=== PATIENT | male | born 1930 | race African-American/Black ===

== ENCOUNTER 2018-10-31 10:50 | Day surgery (SDC) | payer OTHER, BC ==
[2018-10-28 09:03] VITALS: BMI 21.2
[2018-10-31 11:33] LABS: INR 2.19 (0.83-1.09)
[2018-10-31] MEDS ORDERED: LIDOCAINE HCL 1%, 10 MG/ML (20ML VIAL) ONE (12:15)
[2018-10-31] MEDS ORDERED: MIDAZOLAM HCL 2 MG/2 ML SINGLE DOSE VIAL ONE (12:29)
[2018-10-31] MEDS ORDERED: PROPOFOL 20 ML ONE (12:29)
--- NOTE | 2018-10-31 12:29 | HP ---
[facility]ellite [facility] - Chief Complaint History of Present Illness: 88 year old man with chronic kidney disease stage 5. AV access needed for future hemodialysis. He is right handed. History Source: Patient, Medical Record Limitations to Obtaining History: No Limitations - Past Medical History Allergies/Adverse Reactions: Allergies Allergy/AdvReac Type Severity Reaction Status Date / Time No Known Drug Allergies Allergy Verified 10/28/18 09:03 SURG TECH: Yes: Parkinson's Cardiovascular: Yes: AFIB, HTN Renal/: Yes: Renal Failure Rheumatology: Yes: Gout - Current Medications Current Medications: Home Medications Medication Instructions Recorded Allopurinol [Zyloprim -] 100 mg PO DAILY 10/28/18 Brimonidine Tartrate/Timolol 1 drop OP DAILY 10/28/18 [Combigan Eye Drops] Brinzolamide [Azopt] 1 drop OP DAILY 10/28/18 Calcitriol [Rocaltrol -] 0.5 mcg PO DAILY 10/28/18 Diltiazem Cd [Cardizem Cd -] 180 mg PO DAILY 10/28/18 Dorzolamide HCl/Pf [Dorzolamide 2% 1 drop OP DAILY 10/28/18 Eye Drop] Epoetin Colton [Procrit] 20,000 unit IJ MONTHLY 10/28/18 Finasteride 5 mg PO DAILY 10/28/18 Tamsulosin HCl 0.4 mg PO DAILY 10/28/18 Triamterene/Hydrochlorothiazid 1 each PO DAILY 10/28/18 [Triamterene-Hctz 37.5-25 mg Cp] Warfarin Sodium [Coumadin] 3 mg PO DAILY 10/28/18 Sodium Bicarbonate - 10 gr PO DAILY 10/31/18 Satellite Physical Exam - Physical Examination Vital Signs: Vital Signs Period Temp Pulse Resp BP Sys/Kline Pulse Ox Last 24 Hr 97.9 F-97.9 F 71-71 18-18 144-144/59-59 100 General Appearance: Well Developed, Alert & Oriented x3 ENT: Clear Lung: Clear to auscultation Heart: Other (Irregular) Abdomen: Soft Extremities: No edema Neurological: Intact, Tremors Satellite Impression/Plan - Impression/Plan Impression: CKD stage 5 Operative Procedure: Creation AV fistula left arm, brachial art to brachial vein , 1st stage Date to be Performed: 10/31/18
[2018-10-31] MEDS ORDERED: LIDOCAINE HCL 1%, 10 MG/ML (20ML VIAL) PNB ONE ×2 (13:17)
[2018-10-31] MEDS ORDERED: DEXAMETHASONE SOD PHOSPHATE 4 MG/1 ML VIAL ONE (13:20)
[2018-10-31] MEDS ORDERED: ONDANSETRON 4 MG/2 ML VIAL IVPUSH PRN (13:52)
[2018-10-31] MEDS ORDERED: oxyCODONE HCL 5 MG TABLET PO PRN (13:52)
--- NOTE | 2018-10-31 13:56 | OP ---
Operative Note - Note: Operative Date: 10/31/18 Pre-Operative Diagnosis: CKD stage 5 Operation: Creation AV fistula left arm, brachial artery to brachial vein, 1st stage Findings: Patent brachial vessels Post-Operative Diagnosis: Same as Pre-op Surgeon: Shyam Berger Residential Living Assistant: Cameron Giron Anesthesiologist/[employer] ENG[employer]ER: Jacek Mendez Anesthesia: Fractional
[2018-10-31] MEDS ORDERED: SODIUM CHLORIDE 1,000 ML IV SCH (14:00)
[2018-10-31 16:33] VITALS: BP 132/72; PULSE 84; TEMP 97.8
--- NOTE | 2018-11-01 11:56 | OP ---
DATE OF OPERATION: 10/31/2018 SURGEON: Shyam De La Fuente MD ENVIRONMENTAL PROGRAMS MANAGER: LAN Hardy PROCEDURE: Creation arteriovenous fistula, left arm from brachial artery to brachial vein, first stage. PREOPERATIVE DIAGNOSIS: Chronic kidney disease stage 5. POSTOPERATIVE DIAGNOSIS: Chronic kidney disease stage 5. ANESTHESIA: Fractional. ANESTHESIOLOGIST: Jacek Mendez MD OPERATIVE FINDINGS: The left distal brachial artery and adjacent brachial vein were patent with adequate diameter for AV fistula. OPERATIVE PROCEDURE: Following routine patient identification with site and side verification, intravenous sedation was established. The left arm was prepped with ChloraPrep. Then 1% lidocaine was infiltrated in the skin just proximal to the antecubital crease over the brachial pulse. A skin incision was made, and the subcutaneous tissue was divided using cautery for hemostasis. The brachial neurovascular bundle was exposed. The superficial brachial vein was mobilized. Side branches were ligated with silk ties and divided. The vein was ligated distally and incised. It was distended with heparin and Papaverine solution. A No. 5 and No. 8 feeding tubes were passed proximally without resistance, and the vein was filled with heparin solution. The brachial artery was then mobilized at the same location and secured with Vessel Loops. Side branches were ligated and divided. The artery was then occluded with Vessel Loops and opened with a longitudinal arteriotomy measuring approximately 6 mm. The vein was spatulated and anastomosed to the side of the artery with a running suture of 6-0 Prolene. Prior to completion of the suture line, the artery was allowed to back bleed and flush, and the vein was flushed with heparin solution. Suture line was completed, and all vessels were released. There was good flow through the anastomosis with a palpable thrill in the vein proximally. Bleeding from the suture line was controlled with Surgicel. When hemostasis was adequate, the wound was irrigated and closed with interrupted suture of 3-0 Vicryl in the subcutaneous tissues and skin parag. Sterile dressings were applied, and the patient was taken to the recovery room in stable condition. SHYAM DE LA FUENTE M.D. KATHIA/[id number]
== END 2018-10-31 16:30 | disposition home or self-care (01) ==
LOC: JASU-SURG 10:50
PROVIDERS: ATTEND Surgery
PROC: 03180ZD Bypass Left Brachial Artery to Upper Arm Vein, Open Approach (ICD-10-PCS; principal; 2018-10-31 12:00)
DX: I12.0 Hypertensive chronic kidney disease with stage 5 chronic kidney disease or end stage renal disease (principal); N18.6 End stage renal disease; I48.91 Unspecified atrial fibrillation; Z79.01 Long term (current) use of anticoagulants
CPT/HCPCS: 36415; 85610; 94760